=== PATIENT | male | born 1980 | race Caucasian/White ===

== ENCOUNTER 2023-11-08 13:50 | Emergency (ER) | payer BC ==
[2023-11-08] MEDS: Acetaminophen 500 MG Tab PO ONE (14:28)
[2023-11-08] MEDS: Bacitracin Oint 1 GM U/D Packet TOP ONE (15:07)
[2023-11-08] MEDS: Ketorolac 30 MG/ML SDV IM ONE (15:07)
== END 2023-11-08 15:23 | disposition home or self-care (01) ==
LOC: MW.ED 13:50
DX: S01.412A Laceration without foreign body of left cheek and temporomandibular area, initial encounter (principal); S09.90XA Unspecified injury of head, initial encounter; Z79.899 Other long term (current) drug therapy; Z75.8 Other problems related to medical facilities and other health care; Z87.820 Personal history of traumatic brain injury; Y04.0XXA Assault by unarmed brawl or fight, initial encounter; Y99.0 Civilian activity done for income or pay
CPT/HCPCS: 70450; 70450-26; 70486; 70486-26; 99284